=== PATIENT | female | born 1990 | race Caucasian/White ===

== ENCOUNTER 2016-12-14 16:53 | Emergency (ER) | payer BC ==
[2016-12-14 17:02] VITALS: BP 141/72
--- NOTE | 2016-12-14 17:57 | UC ---
UC General HPI - HPI Summary HPI Summary: The patient comes in today for: 1. Numbness of the left side of the head: Onset: 2 years--she has not been seen by anyone for this before. She is not having the numbness at this time. Palliative/provocative: Nothing precipitates the numbness or makes it better. Quality: Numbness. Region: Left side of the head. Severity: No pain. Time: Episodic. Associated symptoms: Numbness frequency: 4 x /wk. Duration: 10 seconds "at the most." Previous evaluation: None. Not having at this time. Weakness: None. Change in vision: None. Primary care provider: She called them today. She was told to come here or the ER. This past Monday, she had a headache and numbness. She has never had these two symptoms together at one time. AT this time, no headache or numbness. NO other symptoms. Vision changes: None. Urination problems: None. Incoordination: None. * - History of Current Complaint Chief Complaint: UCHeadache Stated Complaint: NUMBNESS ON BACK OF HEAD AND NECK Time Seen by Provider: 12/14/16 17:52 Hx Obtained From: Patient - Allergy/Home Medications Allergies/Adverse Reactions: Allergies Allergy/AdvReac Type Severity Reaction Status Date / Time No Known Allergies Allergy Verified 12/14/16 17:03 PMH/Surg Hx/FS Hx/Imm Hx Previously Healthy: Yes Endocrine History Of: Denies: Diabetes, Thyroid Disease, Hyperthyroidism, Hypothyroidism, Dyslipidemia Cardiovascular History Of: Denies: Cardiac Disorders, Hypertension, Pacemaker/ICD, Myocardial Infarction , Congestive Heart Failure, Atrial Fibrillation, Deep Vein Thrombosis, Bleeding Disorders Respiratory History Of: Denies: COPD, Asthma, Bronchitis, Pneumonia, Pulmonary Embolism GI/ History Of: Denies: Gastroesophageal Reflux, Ulcer, Gastrointestinal Bleed, Gall Bladder Disease, Kidney Stones, Diverticulitis, Renal Disease, Urosepsis Neurological History Of: Denies: TIA, CVA, Dementia, Seizures, Migraine Psychological History Of: Denies: Anxiety, Depression, Bipolar Disorder, Schizophrenia, Post Traumatic Stress Disorder Cancer History Of: Denies: Lung Cancer, Colorectal Cancer, Breast Cancer, Prostate Cancer, Cervical Cancer Other History Of: Negative For: HIV, Hepatitis B, Hepatitis C, Anticoagulant Therapy - Surgical History Surgical History: Yes Surgery Procedure, Year, and Place: Tonsillectomy and adenoidectomy, appendectomy - Family History Known Family History: Positive: Hypertension, Other - Neurologic problems? None. Negative: Cardiac Disease - Social History Occupation: Employed Full-time Alcohol Use: Occasionally Alcohol Amount: 2 Substance Use Type: None Smoking Status (MU): Never Smoked Tobacco Review of Systems Constitutional: Negative Skin: Negative Eyes: Negative ENT: Negative Respiratory: Negative Cardiovascular: Negative Gastrointestinal: Negative Genitourinary: Negative All Other Systems Reviewed And Are Negative: Yes Physical Exam Triage Information Reviewed: Yes Appearance: Well-Appearing, No Pain Distress, Well-Nourished Vital Signs: Initial Vital Signs Temp 98.8 F 12/14/16 16:58 Pulse 76 12/14/16 16:58 Resp 12 12/14/16 16:58 BP 141/72 12/14/16 16:58 Pulse Ox 100 12/14/16 16:58 Vital Signs Reviewed: Yes Eyes: Positive: Conjunctiva Clear. Negative: Discharge ENT: Positive: Hearing grossly normal. Negative: Pharyngeal erythema, Nasal congestion, Nasal drainage, TM bulging, TM dull, TM red, Tonsillar swelling, Tonsillar exudate Dental: Negative: Gross Decay/Caries @, Dental Fracture @ Neck: Positive: Supple, Nontender, No Lymphadenopathy. Negative: Nuchal Rigidity Respiratory: Positive: Chest non-tender, Lungs clear, No respiratory distress, No accessory muscle use. Negative: Crackles, Wheezing Cardiovascular: Positive: RRR, No Murmur Abdomen Description: Positive: Nontender, No Organomegaly, Soft. Negative: Distended, Guarding Musculoskeletal: Positive: Strength Intact, ROM Intact, Other: - Neurologic exam : Inspection: no fasciculations. Cranial nerves (II-XII): intact Muscular tone: Reflexes: Biceps: 2+/2 x 2 Triceps: 2+/2 x 2 Brachioradialis: 2+/2 x 2 Patellar: 2+/2 x 2 Achilles: 2+/2 x 2 Coordination: Upper extremity: Alternating patting of thighs, alternating fingertips to thumb, index finger tip to nose--all normal. Lower extremity: Heel along george--normal. Strength: Upper extremity: appropriate for age and symmetrical Lower extremity: appropriate for age and symmetrical Gait: Regular: Normal. Heel to toe: Normal. Rhomberg: Normal. Sensation: No complaint of numbness. Neurological: Positive: Alert, Muscle Tone Normal Psychological: Positive: Age Appropriate Behavior, Consolable Skin: Negative: rashes, breakdown Course/Dx - Course Course Of Treatment: The patient was told that I did not know what was causing her tansient left-sided head numbness (which was not present at the time she was seen by me. She was encouraged to see a neurologist and told that if this occurs again particularly if with heaviness or weakness of a limb or facial asymmetry, speech problems or incoordination, she should go to the ER. - Differential Dx - Multi-Symptom Provider Diagnoses: High blood pressure. Episodic left sided head numbness ( not present during exam). Discharge - Discharge Plan Condition: Stable Disposition: HOME Patient Education Materials: Paresthesia (ED) Referrals: Allen Oneill MD [Primary Care Provider] - Dc Mishra MD [Medical Doctor] - Dunia Farmer MD [Medical Doctor] - As Soon As Possible (Please contact Dr. Farmer 's office as soon as you can for evaluation of your episodic left-sided head numbness.) Additional Instructions: Please follow up with your primary care provider in about a week to check your blood pressure.
== END 2016-12-14 18:22 | disposition home or self-care (01) ==
LOC: UCEAST 16:53
DX: I10 Essential (primary) hypertension (principal); R20.0 Anesthesia of skin
CPT/HCPCS: 99212; G0463

== ENCOUNTER 2022-05-01 06:05 | Inpatient (IN) ==
[2022-05-01] MEDS ORDERED: Buffered Lidocaine 1% SYRIN 1 ml INTRADERM ONE (07:10)
[2022-05-01] MEDS ORDERED: Lactated Ringers 1000 ml BAG 1,000 ML IV ONE ×2 (07:10→18:47)
[2022-05-01] MEDS ORDERED: Lactated Ringers 1000 ml BAG 1,000 ML IV SCH ×2 (08:00→19:00)
[2022-05-01 08:41] LABS: Urine Benzodiazepine Screen None Detected (None Detect); Urine Cannabinoids Screen None Detected (None Detect); Urine Opiates Screen None Detected (None Detect)
[2022-05-01 14:37] LABS: ABS Lymphocytes 1.4 10^3/ul (1.0-4.8); ABS Monocytes 0.7 10^3/ul (0-0.8); ABS Neutrophils 11.7 10^3/ul (1.5-7.7); Hematocrit 35 % (35-47); Hemoglobin 11.4 g/dL (12.0-16.0); Mean Corpuscular HGB Conc 33 g/dL (31-36); Mean Corpuscular Hemoglobin 30 pg (27-31); Mean Corpuscular Volume 91 fL (80-97); Mean Platelet Volume 10.4 fL (7.4-10.4); Platelet Count 181 10^3/uL (150-450); Red Blood Count 3.85 10^6 /uL (3.70-4.87); Red Cell Distribution Width 14 % (10-15); White Blood Count 13.8 10^3/uL (3.5-10.8)
[2022-05-01] MEDS ORDERED: OBEPIDURAL (200 ML) 200 ML EPIDURAL ONE (16:27)
[2022-05-01] MEDS ORDERED: Lidocaine 1.5% EPI 1:200,000 30 ML SDV ONE (16:28)
[2022-05-01 18:35] LABS: Urine Appearance Clear; Urine Bilirubin Negative (Negative); Urine Blood Trace (Intact) (Negative); Urine Color Yellow; Urine Glucose Negative (Negative); Urine Ketones 2+ (40mg/dL) (Negative); Urine Nitrite Negative (Negative); Urine Protein 1+ (30 mg/dL) (Negative); Urine Specific Gravity 1.023 (1.002-1.030); Urine Urobilinogen 0.2 (Negative) (Negative); Urine pH 5.5 (5.0-9.0)
[2022-05-01] MEDS ORDERED: Sodium Citrate/Citric Acid LIQ 15 ML UDC PO PRN (18:47)
[2022-05-01] MEDS ORDERED: Phenylephrine 40 mcg/mL 10mL (400mcg) SYRINGE IV PUSH PRN ×2 (18:47)
[2022-05-01] MEDS ORDERED: Lactated Ringers 1000 ml BAG 500 ML IV PRN ×2 (18:47)
[2022-05-01 18:51] LABS: Urine Bacteria Absent (Absent); Urine Red Blood Cell Trace(0-2/hpf) (Absent); Urine Squamous Epithelial Cell Present (Absent); Urine White Blood Cell Absent (Absent)
[2022-05-01] MEDS ORDERED: OBEPIDURAL (200 ML) 200 ML EPIDURAL SCH (19:00)
[2022-05-01] MEDS ORDERED: Ondansetron 4 mg VIAL 2 MG/ML 2 ml VIAL IV ONE (20:40)
[2022-05-01] MEDS ORDERED: Oxytocin in LR 20,000 MILLI.UNIT/1,000 ML BAG IV SCH (22:15)
[2022-05-02] MEDS ORDERED: Azithromycin 500 mg/250 ml NS 500 MG/250 ML BAG IVPB ONE (00:42)
[2022-05-02] MEDS ORDERED: ceFOXitin 2 GM IVPREMIX 2 GM/50 ML BAG IVPB ONE (00:42)
[2022-05-02] MEDS ORDERED: Oxytocin 10 UNITS/ML 1 ML VIAL ONE (01:01)
[2022-05-02] MEDS ORDERED: Lidocaine 2% w/ EPI 1:200,000 MPF 20 ML SDV VIAL ONE (01:01)
[2022-05-02] MEDS ORDERED: Chloroprocaine 3% 20 ml VIAL ONE (01:01)
[2022-05-02] MEDS ORDERED: Dexamethasone IV 4 MG/ML VIAL 1 ml VIAL ONE (01:18)
[2022-05-02] MEDS ORDERED: Ondansetron 4 mg VIAL 2 MG/ML 2 ml VIAL ONE (01:18)
[2022-05-02] MEDS ORDERED: fentaNYL 100 mcg/2 ml 50 MCG/ML VIAL ONE (01:31)
[2022-05-02] MEDS ORDERED: Morphine PF AMP (0.5MG/ML) 5 MG/10 ML AMP ONE (01:32)
[2022-05-02] MEDS ORDERED: Phenylephrine 40 mcg/mL 10mL (400mcg) SYRINGE ONE (01:32)
[2022-05-02] MEDS ORDERED: Acetaminophen IV 1 GM/100ML 1,000 MG/100 ML BAG IV ONE (01:56)
[2022-05-02] MEDS ORDERED: Naloxone 0.4 mg VIAL 0.4 mg/ml 1 ml VIAL IV PRN (02:17)
[2022-05-02] MEDS ORDERED: Lactated Ringers 1000 ml BAG 1,000 ML IV ONE (02:18)
[2022-05-02] MEDS ORDERED: Sodium Citrate/Citric Acid LIQ 15 ML UDC PO PRN (02:18)
[2022-05-02] MEDS ORDERED: Dibucaine 1% OINT 28.35 GM TUBE PR PRN (02:51)
[2022-05-02] MEDS ORDERED: Witch Hazel PAD JAR TOPICAL PRN (02:51)
[2022-05-02] MEDS ORDERED: Glycerin ADULT 2.4 gm SUPP PR PRN (02:51)
[2022-05-02] MEDS ORDERED: Lactated Ringers 1000 ml BAG 1,000 ML IV SCH ×2 (03:00)
[2022-05-02] MEDS ORDERED: Ondansetron 4 mg VIAL 2 MG/ML 2 ml VIAL IV PRN (03:00)
[2022-05-02] MEDS ORDERED: Oxytocin in LR 20,000 MILLI.UNIT/1,000 ML BAG IV SCH (03:00)
[2022-05-02] MEDS ORDERED: Naloxone 4 mg VIAL (10 ml) 2 MG in NS 0.9% 250 ml 250 ML IV PRN (03:00)
[2022-05-02] MEDS ORDERED: Naloxone 0.4 mg VIAL 0.4 mg/ml 1 ml VIAL IV PUSH PRN (03:00)
[2022-05-02] MEDS ORDERED: OBEPIDURAL (200 ML) 200 ML EPIDURAL SCH (03:00)
[2022-05-02] MEDS ORDERED: Acetaminophen IV 1 GM/100ML 1,000 MG/100 ML BAG IV PRN (03:00)
[2022-05-02] MEDS ORDERED: Scopolamine 1 mg/72hr PATCH TRANSDERM PRN (03:48)
[2022-05-03 06:22] LABS: ABS Lymphocytes 2.1 10^3/ul (1.0-4.8); ABS Monocytes 1.2 10^3/ul (0-0.8); ABS Neutrophils 10.2 10^3/ul (1.5-7.7); Eosinophil % 0.3 %; Hematocrit 28 % (35-47); Hemoglobin 9.2 g/dL (12.0-16.0); Lymphocyte % 15.4 %; Mean Corpuscular HGB Conc 33 g/dL (31-36); Mean Corpuscular Hemoglobin 30 pg (27-31); Mean Corpuscular Volume 91 fL (80-97); Mean Platelet Volume 9.7 fL (7.4-10.4); Platelet Count 154 10^3/uL (150-450); Red Cell Distribution Width 15 % (10-15); White Blood Count 13.5 10^3/uL (3.5-10.8)
[2022-05-03] MEDS ORDERED: Measles, Mumps,Rubella VACC 0.5 ML/VIAL SUBCUT ONE (15:43)
[2022-05-03] MEDS ORDERED: Varicella Virus Vaccine Live 0.5 ML VIAL SUBCUT ONE (15:43)
[2022-05-04] MEDS ORDERED: Measles, Mumps,Rubella VACC 0.5 ML/VIAL ONE (13:58)
[2022-05-05 09:14] VITALS: BP 127/83
== END 2022-05-05 11:47 | disposition home or self-care (01) | DRG 540 ==
LOC: EDACCT# → MCHOBOUT 06:05 → MCHOB 07:08
PROVIDERS: ADMIT Midwife; ATTEND Midwife